=== PATIENT | male | born 1980 | race Caucasian/White ===

== ENCOUNTER 2018-01-19 17:11 | Emergency (ER) | payer MEDICAID ==
[2018-01-19] MEDS: morphine (ER) 30 MG TAB PO (19:44)
[2018-01-19] MEDS: LIDOCAINE 2%/EPI (MDV) 20ML INJ INJ (19:45)
[2018-01-19] MEDS: LIDOCAINE 1% (MDV) 10 ML INJ INFIL (19:52)
[2018-01-19] MEDS: KETOROLAC 15 MG INJ IV (21:40)
[2018-01-19] MEDS: morphine 2 MG INJ IV (21:41)
[2018-01-19] MEDS: CEFAZOLIN 2 GM/50 ML (PMX) 50 ML IVPB (22:00)
== END 2018-01-19 22:38 | disposition home or self-care (01) ==
LOC: FTE 17:11
DX: S01.82XA Laceration with foreign body of other part of head, initial encounter (principal); S01.521A Laceration with foreign body of lip, initial encounter; S02.40DA Maxillary fracture, left side, initial encounter for closed fracture; V28.4XXA Motorcycle driver injured in noncollision transport accident in traffic accident, initial encounter
CPT/HCPCS: 40831; 70486; 96374; 96375; 99285-25